=== PATIENT | female | born 1960 | race Caucasian/White ===

== ENCOUNTER 2022-07-16 09:11 | Outpatient (CLI) | payer OTHER, SELFPAY ==
[2022-07-16 13:16] LABS: SARS PCR* Negative SARS-CoV-2 (Negative)
== END 2022-07-16 09:12 | disposition home or self-care (01) ==
LOC: LONREF 09:11
PROVIDERS: PCP Family Medicine; Visit Provider Orthopaedic Surgery
DX: Z20.822 Contact with and (suspected) exposure to COVID-19 (principal); Z01.818 Encounter for other preprocedural examination
CPT/HCPCS: 87635

== ENCOUNTER 2022-07-17 08:12 | Day surgery (SDC) | payer OTHER, SELFPAY ==
[2022-07-17] VITALS (24 sets, daily range): BP systolic 91–173; BP diastolic 46–129; PULSE 42–64; RESP 12–16; TEMP 35.8–36.8; O2SAT 91–98; BMI 32.8
[2022-07-17] MEDS: LACTATED RINGERS 1000 ML 1,000 ML 100 ML IV (08:45)
[2022-07-17] MEDS: OXYCODONE (CR) 10 MG TAB.ER.12H PO (08:50)
[2022-07-17] MEDS: ACETAMINOPHEN 500 MG TABLET 1000 MG PO ×3 (08:50→22:15)
[2022-07-17] MEDS: CELECOXIB 200 MG CAPSULE PO (08:50)
--- NOTE | 2022-07-17 09:33 | SUR.PREOP ---
TIME?OUT:?0940 PT/RN/MDA?VERIFICATION?OF?SURGICAL?SITE,?PROCEDURE,?AND?CONSENT OBTAINED?PRIOR?TO?INVASIVE?PROCEDURE.
[2022-07-17] MEDS: MIDAZOLAM HCL 1 MG/ML inj IVP (10:00)
[2022-07-17] MEDS: fentaNYL 100 MCG/2 ML inj IVP (10:00)
[2022-07-17] MEDS: CEFAZOLIN 2 GM in 0.9 % SODIUM CHLORIDE Mini-bag 100 ML IVPB ×3 (10:20→23:53)
--- NOTE | 2022-07-17 10:58 | P.NB_ITS ---
Nerve Block Nerve Block Time Seen by Provider: 10:03 Date Seen: 07/17/22 Type of block requested by surgeon for post-operative analgesia: geniculars Side: right Time out performed: Yes Verification of patient name: Yes Verification of date of : Yes Site marking: site marked Name of person performing procedure: Heath Continuous monitoring Was continuous monitoring of O2 sat, B/P, monitoring coordinator, recorded every 15 minutes?: Yes Procedure Checklist: sterile prep, needles and gloves Medications given in 5ml increments after negative aspiration: Ropivicaine %: 0.5 mL: 9 Needle gauge: 25 Patient tolerated procedure well: Yes Block Charges Block Charge (with Pro Fee): Genicular Nerve Block Use of Ultrasound Machine for Block: No
--- NOTE | 2022-07-17 10:58 | W.PM.NB ---
Nerve Block Nerve Block Time Seen by Provider: 10:03 Date Seen: 07/17/22 Type of block requested by surgeon for post-operative analgesia: adductor canal Side: right Time out performed: Yes Verification of patient name: Yes Verification of date of : Yes Site marking: site marked Name of person performing procedure: Heath Continuous monitoring Was continuous monitoring of O2 sat, B/P, night monitor, recorded every 15 minutes?: Yes Procedure Checklist: sterile prep, needles and gloves Ultrasound guided. Images saved: Yes Medications given in 5ml increments after negative aspiration: Ropivicaine %: 0.5 mL: 20 Needle gauge: 20 Decadron (mg): 10 Precedex (mcg): 25 Patient tolerated procedure well: Yes Additional comments: Needle noted adjacent to nerve Block Charges Block Charge (with Pro Fee): Femoral Nerve Use of Ultrasound Machine for Block: Yes- US Guidance/pain block
--- NOTE | 2022-07-17 11:58 | CRLHL7_ITS ---
For Patients: As a result of the Cures Act, medical imaging exams and procedure reports are released immediately into your electronic medical record. You may view this report before your referring provider. If you have questions, please contact your health care provider. Indication: post op TKA Technique: Two views right knee Findings/Impression: Hardware from a right total knee arthroplasty is in satisfactory position. Bone alignment is normal. No sign of acute fracture. Postop changes are within normal limits. Dictated by Bao Mendieta MD @ 07/17/2022 1:18:21 PM (Electronically Signed)
--- NOTE | 2022-07-17 12:03 | P.ORPRC_ITS ---
Procedure Note Date of procedure: 07/17/22 Procedure: PREOPERATIVE DIAGNOSIS: Right knee osteoarthritis, retained right knee ACL hardware POSTOPERATIVE DIAGNOSIS: Right knee osteoarthritis, retained right knee ACL hardware NAME OF OPERATION: Right total knee arthroplasty, hardware removal deep SURGEON: Isael Wiseman MD VASCULAR RADIOLOGIST: SHREYAS Kaur ANESTHESIA: Spinal ESTIMATED BLOOD LOSS: 0 mL COMPLICATIONS: None SPECIMENS: None DRAINS: None PREOPERATIVE ANTIBIOTICS: Ancef 2 grams IMPLANTS: 1. J&J Attune # 6 narrow posterior stabilized femur 2. #4 fixed-bearing tibia 3. #6 posterior stabilized, 5 mm fixed-bearing polyethylene 4. 35 patella INDICATIONS: The patient is a 62-year-old with a longstanding history of severe, unrelenting right knee pain secondary to end-stage (grade IV) right knee osteoarthritis. Despite appropriate nonoperative management, including activity modification, anti-inflammatories, yeqj-qvo-dvaptqq pain medication, bracing, physical therapy, and injections they continue to have pain and disability. Operative intervention was offered. The risks, benefits and expected outcomes were discussed in detail. These included but were not limited to: Infection, bleeding, injury to blood vessel or nerve, venous thromboembolism. All questions were answered to their satisfaction. Use of an wet process miller head assistant was necessary throughout the case for patient positioning and safety, soft tissue retraction, and closure. PROCEDURE: Spinal anesthesia was administered. The patient was placed supine on the operating table. The wet process miller head assistant made sure the patient was positioned appropriately. The lower extremity was prepped and draped in the usual sterile fashion. The limb was exsanguinated with the Wil[place] bandage. The pneumatic tourniquet was inflated to 300 mmHg. A standard anterior incision was made with the knee in flexion. Subcutaneous dissection was sharply taken through fascial layer #1. Full-thickness medial and lateral flaps were elevated. The wet process miller head assistant retracted the soft tissues and protected them throughout the case. A standard medial parapatellar approach was made. The patella was everted. The infrapatellar fat pad was preserved. The menisci and cruciate ligaments were sharply d?brided. Marginal osteophytes were d?brided with the rongeur. The drill was used to penetrate the femoral canal. The canal was aspirated and irrigated with pulse lavage. The intramedullary femoral guide was placed for a 5-degree valgus cut, removing 10 mm off the distal femur. The saw was used to make the cut. Whitesides line and the trans epicondylar axis were marked. The femoral sizing guide was pinned onto the distal femur. Three degrees of external rotation nicely parallels the transepicondylar axis. Pins were placed for posterior referencing. The four-in-one cutting guide was pinned onto the distal femur. The anterior, posterior, and chamfer cuts were made. The wet process miller head assistant protected the collateral ligaments. The box cutting guide was pinned. The box cuts were made. This exposed the ACL femoral interference screw. This was removed with the screwdriver, intact. The boxed trial was placed and was an excellent fit. Drill holes for the lugs were made. Attention was then turned to the proximal tibia. The extramedullary tibial guide was placed for a neutral varus/valgus cut with 5 degrees of posterior slope, removing 2 mm based off the medial tibial surface. The wet process miller head assistant protected the collateral ligaments and the neurovascular bundle. The saw was used to make the cut. Trial components were placed. The knee was tight in both flexion and extension. Therefore, we replaced the guide, advancing it 2 more mm distally. We then made the cut again. Trial components were placed and now the knee was nicely balanced in both flexion and extension. We exposed the button for tibial ACL fixation on the anteromedial face of the tibia. Sutures were divided and the button was removed intact. The trial components were removed. The tray was placed in appropriate rotation, parallel to our tibial cutting pins. It was pinned by the wet process miller head assistant and the drill and the punch were used. The tray was removed. The punch was used again. The graft in the tunnel was debrided with the rongeur. Autograft was placed in the tunnel. We placed a bone plug in the femoral canal. Attention was then turned to the patella. Eek patellar thickness was 25 mm. The lobster claw resection guide was used with the 9.5 mm moises. The saw was used to make the cut. Drill holes were made by the wet process miller head assistant. The trial was placed and was an excellent fit. Cancellous surfaces were irrigated with pulse lavage and thoroughly dried by the wet process miller head assistant. We cemented the tibial component, then the femoral component. We impacted the 5 mm polyethylene onto the tibial tray. The knee was brought into full extension. We then cemented the patellar component. Excessive cement was removed. The cement was allowed to harden. The knee was taken through a range of motion and was found to be nicely balanced in both flexion and extension. The patella tracks centrally. The wet process miller head assistant did a three minute dilute Betadine solution soak. The wet process miller head assistant irrigated the wound with 3 liters of normal saline via pulse lavage. The wet process miller head assistant reapproximated the extensor mechanism with #1 Vicryl in an interrupted inofin-ev-esazx fashion. The wet process miller head assistant then ran the extensor mechanism with a #1 PDO Stratafix. The wet process miller head assistant closed the subcutaneous tissues with a 3-0 Stratafix and the skin with a running 3-0 Stratafix in a subcuticular fashion. Glue was used to seal the skin. The wet process miller head assistant placed a dry dressing, ENRIQUETA stocking, and Polar Care. Sponge and needle counts were correct x2. The patient tolerated the procedure well. There were no apparent complications. They were carefully transferred to the hospital bed and taken to the ostanesthesia care unit in satisfactory condition. PLAN: The patient will be mobilized with physical therapy. Aspirin will be used for DVT prophylaxis. They will be discharged to home once medically appropriate.
--- NOTE | 2022-07-17 12:26 | W.ANESCHARGE ---
Anesthesia Charges Start Date/Time Anesthesia Start Date: 07/17/22 Anesthesia Start Time: 10:18 Stop Date/Time Anesthesia Stop Date: 07/17/22 Anesthesia Stop Time: 12:44
[2022-07-17] MEDS: LACTATED RINGERS 1000 ML 1,000 ML 35 ML IV (12:40)
--- NOTE | 2022-07-17 12:44 | W.ANESCHARGE ---
Anesthesia Charges Start Date/Time Anesthesia Start Date: 07/17/22 Anesthesia Start Time: 10:18 Stop Date/Time Anesthesia Stop Date: 07/17/22 Anesthesia Stop Time: 12:44
[2022-07-17] MEDS: ONDANSETRON 2 MG/ML inj 4 MG IVP (14:35)
--- NOTE | 2022-07-17 15:08 | PC.NURSE ---
Pt arrived to floor from surgery at approximately 130pm. Pt voided times 2 before end of shift. Pt is a 1 assist with walker per PT. Pt had nauesa/vommiting see EMAR for treatment. Pt is consuming ice chips at this time.
--- NOTE | 2022-07-17 15:33 | P.IMCN_ITS ---
Date of Consult Patient: Jose Cruz Patient Consult date: 07/17/22 Requesting Physician: Orthopedics Primary Care Provider: Lucy Mcgarry MD Consult Narrative Reason for consult: Medical management of comorbidities Narrative: Priyanka Harris is a 62 year old female who presented to the hospital today for an elective R TKA. There were no surgical or anesthetic complications noted during procedure. Patient's H&P reviewed, PCP is Dr. Mcgarry. Past medical history significant for: Oyn-ajqmwrv-ynxocyerm DM2 (last A1c 6.6), hypothyroidism, essential hypertension, hyperlipidemia. History of blood clots: No Postoperative plan: Home with , lives in [place]. Nonsmoker, no regular alcohol use. Review of Systems 2 Status of ROS: Reports: 10 or more systems reviewed and unremarkable except as noted in History and below PFSH [facility] Medical History (Updated 07/17/22 @ 15:37 by Graciela Sosa MD) Controlled substance agreement signed Elevated cholesterol HTN (hypertension) Hypothyroid Sleep apnea Type 2 diabetes mellitus Surgical History (Updated 07/17/22 @ 15:37 by Graciela Sosa MD) H/O arthroscopic knee surgery (08/01/08) H/O wrist surgery History of repair of anterior cruciate ligament of right knee (02/13/17) Hx of cholecystectomy Family History (Updated 07/01/22 @ 14:30 by Sofiya Darden RN) Mother Angina at rest Sister Myocardial infarction Social History Smoking Status: Former smoker Do you use any of these nicotine containing products: None How often do you have a drink containing alcohol: monthly or less Alcohol type: wine How many standard drinks containing alcohol do you have on a typical day: 1 or 2 How often do you have six or more drinks on one occasion: Never AUDIT-C Alcohol total score: 1 Non-prescribed substance use: denies use Caffeine: Yes (occ coffee) Meds Home Medications and Allergies Home Medications Medication Instructions Recorded Confirmed Type levothyroxine 125 mcg tablet 125 mcg PO DAILY 03/11/22 07/17/22 History trazodone 100 mg tablet 100 - 200 mg PO HS 03/11/22 07/16/22 History acetaminophen 300 mg-codeine 30 mg 1 - 2 tab PO DAILY PRN 03/12/22 07/16/22 History tablet hydrochlorothiazide 12.5 mg tablet 12.5 mg PO DAILY 03/12/22 07/17/22 History metoprolol succinate 100 mg 100 mg PO DAILY 03/12/22 07/16/22 History tablet,extended release 24 hr oxycodone-acetaminophen 5 mg-325 1 tab PO DAILY PRN 03/12/22 07/16/22 History mg tablet aspirin 81 mg tablet,delayed 81 mg PO DAILY 07/16/22 07/16/22 History release (Adult Low Dose Aspirin) cholecalciferol (vitamin D3) 25 25 mcg PO DAILY 07/16/22 07/16/22 History mcg (1,000 unit) capsule clobetasol 0.05 % topical ointment 1 applic topical BID 07/16/22 07/16/22 History glipizide 10 mg tablet, extended 10 mg PO DAILY 07/16/22 07/16/22 History release 24 hr metronidazole 0.75 % topical gel 1 applic topical BID 07/16/22 07/16/22 History multivitamin (Daily Multi-Vitamin 1 tab PO DAILY 07/16/22 07/16/22 History tablet) omeprazole 20 mg capsule,delayed 20 mg PO BID 07/16/22 07/16/22 History release rosuvastatin 20 mg tablet 20 mg PO HS 07/16/22 07/16/22 History Allergies Allergy/AdvReac Type Severity Reaction Status Date / Time tramadol Allergy Verified 07/17/22 08:43 Exam Narrative: Exam Narrative: GEN: Alert and oriented, sitting comfortably in bed answering questions appropriately HEENT: EOMIs bilaterally, no scleral icterus CV: RRR, No concerning murmurs, rubs, or gallops R: LCTA bilaterally without concerning wheezing, air movement adequate Skin: No concerning skin lesions or rashes on exposed skin Neuro: Nonfocal Psych: Appropriate Const: Vital Signs, click to edit/add: Vital Signs - 24 hr 07/17/22 08:35 07/17/22 10:00 07/17/22 10:05 Temperature 98.1 F 98.2 F Pulse Rate 52 L 45 L 55 L Pulse Rate [Left P ulse Oximeter] Respiratory Rate 16 16 14 Blood Pressure 145/82 H 173/71 H 152/82 H Blood Pressure [Le ft Arm] Pulse Oximetry 96 97 98 Oxygen Delivery Me thod Room Air Nasal Cannula Nasal Cannula Oxygen Flow Rate 3 07/17/22 10:11 07/17/22 12:39 07/17/22 12:45 Temperature 97.7 F Pulse Rate 48 L 58 L 46 L Pulse Rate [Left P ulse Oximeter] Respiratory Rate 14 14 14 Blood Pressure 140/73 H 91/46 L 92/63 Blood Pressure [Le ft Arm] Pulse Oximetry 98 96 92 Oxygen Delivery Me thod Nasal Cannula Room Air Oxygen Flow Rate 2 07/17/22 12:50 07/17/22 12:55 07/17/22 13:00 Temperature Pulse Rate 49 L 59 L 46 L Pulse Rate [Left P ulse Oximeter] Respiratory Rate 12 12 12 Blood Pressure 110/65 124/73 134/75 Blood Pressure [Le ft Arm] Pulse Oximetry 91 92 94 Oxygen Delivery Me thod Nasal Cannula Oxygen Flow Rate 2 07/17/22 13:05 07/17/22 13:10 07/17/22 13:24 Temperature 96.6 F L 96.4 F L Pulse Rate 47 L 47 L 43 L Pulse Rate [Left P ulse Oximeter] Respiratory Rate 12 12 12 Blood Pressure 141/82 H 138/84 Blood Pressure [Le ft Arm] 136/72 Pulse Oximetry 94 92 Oxygen Delivery Me thod Room Air Room Air Oxygen Flow Rate 07/17/22 13:39 07/17/22 13:46 07/17/22 14:01 Temperature 96.6 F L 96.8 F L 96.8 F L Pulse Rate Pulse Rate [Left P ulse Oximeter] 42 L 60 42 L Respiratory Rate 12 14 14 Blood Pressure Blood Pressure [Le ft Arm] 134/72 111/79 137/70 Pulse Oximetry 93 94 95 Oxygen Delivery Me thod Room Air Room Air Room Air Oxygen Flow Rate 2 2 0 07/17/22 14:17 07/17/22 14:47 Temperature 96.8 F L 96.8 F L Pulse Rate Pulse Rate [Left P ulse Oximeter] 43 L 51 L Respiratory Rate 14 16 Blood Pressure Blood Pressure [Le ft Arm] 136/71 156/129 H Pulse Oximetry 95 95 Oxygen Delivery Me thod Room Air Room Air Oxygen Flow Rate 0 0 Assessment and Plan Assessment and plan (1) Status post total knee replacement, right: Problem comment: - 07/17/22 Status: Acute (2) Type 2 diabetes mellitus: Problem comment: - last A1c 6.6, June 2022 Status: Acute (3) HTN (hypertension): Problem comment: - On metoprolol and hydrochlorothiazide as outpatient Status: Acute Plan - Pain management and prophylaxis per orthopedic surgery team - continue home medications for above-mentioned comorbidities - anticipate routine postoperative course
[2022-07-17] MEDS: HYDROmorphone 0.5 mg/0.5 ml inj IVP (16:10)
[2022-07-17] MEDS: OXYCODONE 5 MG TABLET PO ×2 (17:35→20:28)
[2022-07-17] MEDS: LACTATED RINGERS 1000 ML 1,000 ML 75 ML IV (17:35)
[2022-07-17] MEDS: METOPROLOL SUCCINATE (XL) 100 MG TAB PO (20:27)
[2022-07-17] MEDS: ROSUVASTATIN CALCIUM 10 MG TABLET 20 MG PO (20:27)
[2022-07-17] MEDS: ASPIRIN 81 MG TABLET EC PO (20:27)
[2022-07-17] MEDS: OMEPRAZOLE 20 MG CAPSULE DR PO (20:27)
[2022-07-17] MEDS: SENNOSIDES 1 TAB TABLET 2 TAB PO (20:28)
--- NOTE | 2022-07-17 21:20 | PC.NURSE ---
Shift Note [id number]: Pt doing well post-op. VS WNL and LS COA. Surgical dressing to right knee C,D,&I with cryocuff in place. Rates pain 5/10, PRN Oxycodone given with scheduled Tylenol. Good oral intake and pt voiding regularly. Plans to discharge home with her tomorrow.
[2022-07-17] MEDS: TRAZODONE HCL 50 MG TABLET PO (22:16)
[2022-07-18 03:00] VITALS: BP 125/63; PULSE 52; RESP 16; TEMP 36.7; O2SAT 92
[2022-07-18] MEDS: ACETAMINOPHEN 500 MG TABLET 1000 MG PO (03:43)
--- NOTE | 2022-07-18 05:45 | PC.NURSE ---
END OF SHIFT NOTE: PT PLEASANT AND COOPERATIVE. TANIA CP, SOB, N/V. AMBULATES WITH WALKER AND SBA WITHIN ROOM. VSS ON RA; AFEBRILE. CRYO CUFF TO RIGHT KNEE. BED ALARM ON AND CALL LIGHT WITHIN REACH OF PT.?PT RATES PAIN TO RIGHT KNEE 2/10 WHILE AT REST AND 6/10 WITH ACTIVITY. RELIEF WITH SCHEDULED MEDS, CRYO CUFF, ELEVATION AND REST.
[2022-07-18] MEDS: LEVOTHYROXINE 125 MCG TABLET PO (06:06)
[2022-07-18 06:32] LABS: Basophils Percent Auto 0.1 % (0.0-3.0); Hemoglobin* 12.3 gm/dL (12.0-16.0); Immature Granulocytes Pct Auto 1.3 %; Lymphocytes Percent Auto 6.6 % (20-44); Mean Corpuscular HGB Conc 35 gm/dL (32-36); Mean Corpuscular Hemoglobin 32 pg (26-34); Mean Corpuscular Volume 91 fL (80-100); Monocytes Percent Auto 7.1 % (0.0-11.0); Neutrophils Percent Auto 84.9 % (42.0-72.0); Platelet Count* 190 K/uL (140-440); RDW Coefficient of Variation % 12.2 % (11.5-15.5); Red Blood Count 3.85 m/uL (4.00-5.20); White Blood Count* 14.84 K/uL (4.50-11.00)
[2022-07-18 06:34] LABS: Slide Review Reflex No
[2022-07-18 06:42] LABS: Sodium* 138 mmol/L (135-149)
[2022-07-18 06:44] LABS: Creatinine* 0.5 mg/dL (0.5-1.5); Est. Creatinine Clearance* 103.32; Estimated Glomerular Filt Rate 107 ml/min
[2022-07-18 06:45] LABS: Blood Urea Nitrogen* 12 mg/dL (7-30)
[2022-07-18 06:50] LABS: INR 1.15 (0.91-1.10); Prothrombin Time 15.3 Seconds
[2022-07-18 07:00] VITALS: BP 115/60; PULSE 48; RESP 18; TEMP 36.8; O2SAT 96
[2022-07-18] MEDS: OXYCODONE 5 MG TABLET PO (07:56)
--- NOTE | 2022-07-18 08:06 | PM.ORPN ---
Subjective Subjective Time Seen by Provider: 07:30 Date Seen: 07/18/22 Principal diagnosis: S/p day 1 right total knee arthroplasty Interval history: Priyanka is doing well this morning and is resting comfortably in bed. Patient complains of diffuse right knee pain (ranks as 3/10) that is well managed with current scheduled and PRN oral pain medications and ice. Denies: fever, chills, body chest pain, SOB, nausea and vomiting. Patient has not yet been seen by Physical Therapy and Occupational Therapy this morning. Patient has not yet had a bowel movement, but admits to flatulence. No acute events over night. Ortho Exam Narrative Exam Narrative: Incision/Dressing: Dressing appears clean and dry. No drainage present. Mepilex intact. Right knee appears moderately swollen but supple with no obvious erythema, fluctuance or excessive warmth. No ecchymosis or erythematous streaking. Warmth around the wound is appropriate. Ice is being utilized as needed. CMS: Intact distally with 2+ Dorsalis pedis and Posterior Tibial pulses. 5/5 motor strength dorsal and plantar flexion. Confirmed sensation distally. Calf: Bilateral calves are supple, with no erythema, discoloration or coolness to the touch. Constitutional: Patient is alert and oriented x3. Patient is in no acute distress and converses without labored breathing. Patient is able to make decisions and demonstrates good insight. Patient is pleasant and cooperative. Affect is full range and appropriate for the circumstances. Const Vital Signs, click to edit/add: Vital Signs - 24 hr 07/17/22 08:35 07/17/22 10:00 07/17/22 10:05 Temperature 98.1 F 98.2 F Pulse Rate 52 L 45 L 55 L Pulse Rate [Left Pulse Oximeter] Respiratory Rate 16 16 14 Blood Pressure 145/82 H 173/71 H 152/82 H Blood Pressure [Left Arm] Blood Pressure [Right Arm] Pulse Oximetry 96 97 98 Oxygen Delivery Method Room Air Nasal Cannula Nasal Cannula Oxygen Flow Rate 3 07/17/22 10:11 07/17/22 12:39 07/17/22 12:45 Temperature 97.7 F Pulse Rate 48 L 58 L 46 L Pulse Rate [Left Pulse Oximeter] Respiratory Rate 14 14 14 Blood Pressure 140/73 H 91/46 L 92/63 Blood Pressure [Left Arm] Blood Pressure [Right Arm] Pulse Oximetry 98 96 92 Oxygen Delivery Method Nasal Cannula Room Air Oxygen Flow Rate 2 07/17/22 12:50 07/17/22 12:55 07/17/22 13:00 Temperature Pulse Rate 49 L 59 L 46 L Pulse Rate [Left Pulse Oximeter] Respiratory Rate 12 12 12 Blood Pressure 110/65 124/73 134/75 Blood Pressure [Left Arm] Blood Pressure [Right Arm] Pulse Oximetry 91 92 94 Oxygen Delivery Method Nasal Cannula Oxygen Flow Rate 2 07/17/22 13:05 07/17/22 13:10 07/17/22 13:24 Temperature 96.6 F L 96.4 F L Pulse Rate 47 L 47 L 43 L Pulse Rate [Left Pulse Oximeter] Respiratory Rate 12 12 12 Blood Pressure 141/82 H 138/84 Blood Pressure [Left Arm] 136/72 Blood Pressure [Right Arm] Pulse Oximetry 94 92 Oxygen Delivery Method Room Air Room Air Oxygen Flow Rate 07/17/22 13:39 07/17/22 13:46 07/17/22 14:01 Temperature 96.6 F L 96.8 F L 96.8 F L Pulse Rate Pulse Rate [Left Pulse Oximeter] 42 L 60 42 L Respiratory Rate 12 14 14 Blood Pressure Blood Pressure [Left Arm] 134/72 111/79 137/70 Blood Pressure [Right Arm] Pulse Oximetry 93 94 95 Oxygen Delivery Method Room Air Room Air Room Air Oxygen Flow Rate 2 2 0 07/17/22 14:17 07/17/22 14:47 07/17/22 15:00 Temperature 96.8 F L 96.8 F L Pulse Rate Pulse Rate [Left Pulse Oximeter] 43 L 51 L Respiratory Rate 14 16 Blood Pressure Blood Pressure [Left Arm] 136/71 156/129 H Blood Pressure [Right Arm] Pulse Oximetry 95 95 93 Oxygen Delivery Method Room Air Room Air Oxygen Flow Rate 0 0 07/17/22 15:32 07/17/22 15:47 07/17/22 16:49 Temperature 97.6 F Pulse Rate Pulse Rate [Left Pulse Oximeter] 52 L 54 L 50 L Respiratory Rate 16 16 16 Blood Pressure Blood Pressure [Left Arm] 152/88 H 130/109 H 137/77 Blood Pressure [Right Arm] Pulse Oximetry 95 93 95 Oxygen Delivery Method Room Air Room Air Room Air Oxygen Flow Rate 0 0 0 07/17/22 17:49 07/17/22 18:49 07/17/22 23:00 Temperature 97.6 F Pulse Rate Pulse Rate [Left Pulse Oximeter] 64 51 L Respiratory Rate 16 16 Blood Pressure Blood Pressure [Left Arm] 113/61 127/53 L Blood Pressure [Right Arm] Pulse Oximetry 95 95 96 Oxygen Delivery Method Room Air Room Air Oxygen Flow Rate 0 0 07/17/22 23:00 07/17/22 23:00 07/18/22 03:00 Temperature 97.5 F L 98.0 F Pulse Rate Pulse Rate [Left Pulse Oximeter] 50 L 50 L 52 L Respiratory Rate 16 16 16 Blood Pressure Blood Pressure [Left Arm] 126/66 Blood Pressure [Right Arm] 125/63 Pulse Oximetry 96 92 Oxygen Delivery Method Room Air Room Air Oxygen Flow Rate 0 0 Documenting provider has reviewed patient's vital signs: yes Assessment and Plan Assessment and plan (1) Status post total knee replacement, right: Problem details: DOS: 07/17/22, Dr. Wiseman Status: Acute Assessment and Plan: - Complete 23 hour perioperative antibiotics. - PT/OT consults for education and assistance. - Social consult for discharge planning. - Weight bear as tolerated. - DVT prophylaxis includes: aspirin 81 mg BID x 1 month. Also bilateral knee high Varun stockings (x 1 month), frequent ambulation and ankle pumps when sedentary. - Anticipate patient will be discharged to home later this morning if the patient remains medically stable, pain is controlled and is safe with ambulation. - Return to clinic in 1 week for a wound check. Mepilex dressing will be removed at this appointment. Remove sooner if dressing becomes saturated. - Return to clinic in [address] Wiseman. - Prescribed analgesics as needed. Patient is content with current narcotic medications. Minimize narcotic pain medication use; wean off and discontinue as soon as possible. - Phone Orthopedics with any questions or concerns. (2) Type 2 diabetes mellitus: Status: Acute (3) HTN (hypertension): Status: Acute
[2022-07-18] MEDS: ASPIRIN 81 MG TABLET EC PO (08:30)
[2022-07-18] MEDS: hydroCHLOROthiazide 12.5 MG CAPSULE PO (08:31)
[2022-07-18] MEDS: glipiZIDE XL 5 MG TAB 10 MG PO (08:31)
[2022-07-18] MEDS: OMEPRAZOLE 20 MG CAPSULE DR PO (08:32)
[2022-07-18] MEDS: SENNOSIDES 1 TAB TABLET 2 TAB PO (08:32)
[2022-07-18 09:33] VITALS: BP 138/84; PULSE 43; RESP 18; TEMP 36.8
[2022-07-18 10:45] VITALS: BP 115/60; PULSE 48
--- NOTE | 2022-07-18 10:50 | PC.NURSE ---
Addendum entered by Jen Ochoa RN 07/18/22 11:01: Edit- Nursing Care Hours [id number] Original Note: Nursing Care Hours: [id number] Pt this shift up with SB assist using walker. Gait steady. Alert and oriented. No c/o chest pain or SOB. Pain to R knee 08/08, premedicated per eMAR prior to working with PT/OT. BS present, pt states passing flatus, no BM. Bandage to R knee CDI, cryo-cuff on. IS used, 2000 reached. Teds and SCDs in use. IV leaking, unable to adjust it. DC'd early for discharge, third ABX non administered. Discharge instructions given. All questions and concerns answered. Pt concerned about elevated BS from last night, mortgage underwriter educated pt on stressors that can raise blood sugar levels and to follow up with primary for concerns with readings going forward.
--- NOTE | 2022-07-18 13:23 | P.DS_ITS ---
DS: Providers Provider Time Seen by Provider: 08:15 Date Seen: 07/18/22 Date of admission: 07/17/2022 Primary care physician: Lucy Mcgarry MD Admitting Clinician: Isael Wiseman MD Consults: 07/17/22 13:38 Consult to Occupational Therapy [CONS] Routine Comment: Reason(s) for OT Consult:: ADLs Prior to Discharge Any Restrictions?:: See Comment Comment: See nursing activity order for any restrictions. Consult to Physical Therapy [CONS] Routine Comment: Ambulate in the you today. Reason(s) for PT Consult:: TKA TX Protocol POD#0 Any Restrictions?:: See Comment Comment: See nursing activity order for any restrictions. Consult to Physician [CONS] Routine Comment: Consulting Provider: Hospitalists Has provider been notified: No Consult to Fish Hatchery Assistant [CONS] Routine Comment: Reason for Consult:: Discharge Planning Needs Attending Physician on discharge: Isael Wiseman MD Date of Discharge: 07/18/22 DS: Diagnosis Discharge Diagnosis (1) Osteoarthritis of right knee: Status: Acute (2) Status post total knee replacement, right: Status: Acute Problem details: DOS: 07/17/22, Dr. Wiseman (3) Right shoulder pain: Status: Acute (4) Type 2 diabetes mellitus: Status: Acute (5) HTN (hypertension): Status: Acute DS: Summary Hospital Course Hospital Course: 62-year-old woman presents for an elective right total knee arthroplasty. This is undertaken successfully without any apparent complications. Did have postoperative asymptomatic bradycardia without hypotension, heart rates in the mid 40s to mid 50s. Recommended outpatient follow-up for the same. Status at Discharge Functional status at discharge: uses cane/walker Overall status at discharge: patient is progressing back to baseline Time Spent with Patient Time attestation: Total time spent providing and/or coordinating discharge services: Time spent: Less than 30 minutes Exam Narrative: Exam Narrative: GEN: Alert and oriented, sitting comfortably in bed answering questions appropriately HEENT: EOMIs bilaterally, no scleral icterus CV: RRR, No concerning murmurs, rubs, or gallops R: LCTA bilaterally without concerning wheezing, air movement adequate Skin: No concerning skin lesions or rashes on exposed skin Neuro: Nonfocal. Transfers and ambulates with use of walker. Able to safely walk up and down steps. Psych: Appropriate Const: Vital Signs, click to edit/add: Vital Signs - 24 hr 07/17/22 13:24 07/17/22 13:39 07/17/22 13:46 Temperature 96.4 F L 96.6 F L 96.8 F L Pulse Rate 43 L Pulse Rate [Left P ulse Oximeter] 42 L 60 Respiratory Rate 12 12 14 Blood Pressure Blood Pressure [Le ft Arm] 136/72 134/72 111/79 Blood Pressure [Ri ght Arm] Pulse Oximetry 93 94 Oxygen Delivery Me thod Room Air Room Air Room Air Oxygen Flow Rate 2 2 07/17/22 14:01 07/17/22 14:17 07/17/22 14:47 Temperature 96.8 F L 96.8 F L 96.8 F L Pulse Rate Pulse Rate [Left P ulse Oximeter] 42 L 43 L 51 L Respiratory Rate 14 14 16 Blood Pressure Blood Pressure [Le ft Arm] 137/70 136/71 156/129 H Blood Pressure [Ri ght Arm] Pulse Oximetry 95 95 95 Oxygen Delivery Me thod Room Air Room Air Room Air Oxygen Flow Rate 0 0 0 07/17/22 15:00 07/17/22 15:32 07/17/22 15:47 Temperature 97.6 F Pulse Rate Pulse Rate [Left P ulse Oximeter] 52 L 54 L Respiratory Rate 16 16 Blood Pressure Blood Pressure [Le ft Arm] 152/88 H 130/109 H Blood Pressure [Ri ght Arm] Pulse Oximetry 93 95 93 Oxygen Delivery Me thod Room Air Room Air Oxygen Flow Rate 0 0 07/17/22 16:49 07/17/22 17:49 07/17/22 18:49 Temperature 97.6 F Pulse Rate Pulse Rate [Left P ulse Oximeter] 50 L 64 51 L Respiratory Rate 16 16 16 Blood Pressure Blood Pressure [Le ft Arm] 137/77 113/61 127/53 L Blood Pressure [Ri ght Arm] Pulse Oximetry 95 95 95 Oxygen Delivery Me thod Room Air Room Air Room Air Oxygen Flow Rate 0 0 0 07/17/22 23:00 07/17/22 23:00 07/17/22 23:00 Temperature 97.5 F L Pulse Rate Pulse Rate [Left P ulse Oximeter] 50 L 50 L Respiratory Rate 16 16 Blood Pressure Blood Pressure [Le ft Arm] 126/66 Blood Pressure [Ri ght Arm] Pulse Oximetry 96 96 Oxygen Delivery Me thod Room Air Oxygen Flow Rate 0 07/18/22 03:00 07/18/22 07:00 07/18/22 07:00 Temperature 98.0 F Pulse Rate Pulse Rate [Left P ulse Oximeter] 52 L 48 L Respiratory Rate 16 18 Blood Pressure Blood Pressure [Le ft Arm] Blood Pressure [Ri ght Arm] 125/63 Pulse Oximetry 92 96 Oxygen Delivery Me thod Room Air Oxygen Flow Rate 0 07/18/22 07:00 07/18/22 09:33 07/18/22 10:45 Temperature 98.3 F 98.3 F Pulse Rate 43 L 48 L Pulse Rate [Left P ulse Oximeter] 48 L Respiratory Rate 18 18 Blood Pressure 138/84 115/60 Blood Pressure [Le ft Arm] Blood Pressure [Ri ght Arm] 115/60 Pulse Oximetry 96 Oxygen Delivery Me thod Room Air Oxygen Flow Rate Documenting provider has reviewed patient's vital signs: yes DS: Data Data Completed and Pending Labs on day of discharge: Labs from last 24 hours 07/18/22 07/18/22 07/18/22 06:10 06:10 06:10 WBC 14.84 H RBC 3.85 L Hgb 12.3 Hct 35.0 MCV 91 MCH 32 MCHC 35 RDW Coeff of Di 12.2 Plt Count 190 Neut % (Auto) 84.9 H Lymph % (Auto) 6.6 L Cowley % (Auto) 7.1 Eos % (Auto) 0.0 Baso % (Auto) 0.1 Neut # (Auto) 12.60 H Lymph # (Auto) 1.00 Cowley # (Auto) 1.10 H Eos # (Auto) 0.00 Baso # (Auto) 0.00 INR 1.15 H Sodium 138 Potassium 4.0 BUN 12 Creatinine 0.5 Estimated Creat Clear 103.32 Estimated GFR 107 Discharge Plan Discharge Disposition: Home, Self-Care Discharging Surgeon: Isael Wiseman Follow-Up Appointment: One week Prescriptions: New sennosides [Senna Lax] 8.6 mg Tablet 17.2 mg PO BID PRN (Reason: constipation) Qty: 100 0RF aspirin [Aspirin Childrens] 81 mg tablet,chewable 81 mg PO BID 30 Days Qty: 60 0RF acetaminophen 500 mg capsule 500 - 1,000 mg PO Q6H MDD 4000mg per day PRN (Reason: pain) Qty: 100 0RF oxycodone 5 mg Tablet 2.5 - 10 mg PO Q4-6H MDD 6 tabs per day PRN (Reason: Pain) Qty: 42 0RF Rx Instructions: Minimize use. Wean off and discontinue as soon as possible. Continued levothyroxine 125 mcg tablet 125 mcg PO DAILY trazodone 100 mg tablet 100 - 200 mg PO HS metoprolol succinate 100 mg tablet extended release 24 hr 100 mg PO DAILY hydrochlorothiazide 12.5 mg tablet 12.5 mg PO DAILY cholecalciferol (vitamin D3) 25 mcg (1,000 unit) capsule 25 mcg PO DAILY clobetasol 0.05 % ointment 1 applic topical BID glipizide 10 mg tablet extended release 24hr 10 mg PO DAILY metronidazole 0.75 % gel 1 applic topical BID multivitamin [Daily Multi-Vitamin] Tablet 1 tab PO DAILY omeprazole 20 mg capsule,delayed release(DR/EC) 20 mg PO BID rosuvastatin 20 mg tablet 20 mg PO HS Held aspirin [Adult Low Dose Aspirin] 81 mg tablet,delayed release (DR/EC) 81 mg PO DAILY Hold Instructions: Resume on 08/18/22. Resume this dose of aspirin after completion of 1 month course of aspirin prescribed by orthopedic surgeon Discontinued oxycodone-acetaminophen 5-325 mg tablet 1 tab PO DAILY PRN acetaminophen-codeine 300-30 mg tablet 1 - 2 tab PO DAILY PRN Activity Level: Activity as Tolerated and No strenuous activity Activity Detail: Keep dressing on for 1 week. Dressing is waterproof. May shower. Surgical glue covers the wound. Attend outpatient physical therapy if scheduled. Ice and elevate operative extremity without restriction. Wear compression stockings for 1 month post surgery. May remove for 1 hour per day. Ambulate every hour throughout the day. If you drive, Do not drive while taking narcotic pain medication. Do not drink alcohol while taking narcotic pain medication. May drive when safe to do so and have full function of the extremities, this may take 6 weeks or more. Notify Orthopedics with any questions or concerns. ([phone]) Discharge Diet: Regular Patient Instructions: Acetaminophen (By mouth), Aspirin (By mouth), Oxycodone, Rapid Release (By mouth), Senna (By mouth) (Sen, Senna-lax), Surgical Site Infections (DC), Knee Replacement (DC) Forms: Work/School Release Follow-up: Kelly Barraza PA-C [Physician Maintenance Construction Helper] - 07/24/22 1:00 pm ([facility]) Lucy Mcgarry MD [Primary Care Provider] - (f/u 1-2 weeks re: perioperative asymptomatic bradycardia, HR 45-55 with SBP 110's) Discharge Orders: Discharge Order (Routine); Ordered 07/18/22 Ordered By: Kelly Barraza Consulting provider completed their portion of the discharge: Yes
== END 2022-07-18 10:40 | disposition home or self-care (01) ==
LOC: OR 08:14 → MEDSURG 08:18
PROVIDERS: PCP Family Medicine; Visit Provider Orthopaedic Surgery
PROC: (CPT 27447; principal; 2022-07-17 10:15)
DX: M17.11 Unilateral primary osteoarthritis, right knee (principal); E11.9 Type 2 diabetes mellitus without complications; I10 Essential (primary) hypertension; E03.9 Hypothyroidism, unspecified; E78.5 Hyperlipidemia, unspecified; G47.30 Sleep apnea, unspecified; M25.511 Pain in right shoulder; R00.1 Bradycardia, unspecified
CPT/HCPCS: 27447; 01402; 36415; 73560; 76942; 82565; 82962; 84132; 84295; 84520; 85025; 85610; 97110; 97116; 97161; 97165; 97530; 97535; A9270; C1776; J0690; J1100; J1170; J2250; J2405; J2704; J2795; J3010; J7120

== ENCOUNTER 2022-09-11 07:30 | Outpatient (RCR) | payer OTHER, SELFPAY | END 2022-12-18 23:59 | disposition home or self-care (01) | PROVIDERS: PCP Family Medicine; Visit Provider Orthopaedic Surgery | DX: Z96.651 Presence of right artificial knee joint (principal); Z51.89 Encounter for other specified aftercare | CPT/HCPCS: 97110; 97162; 97164 ==